=== PATIENT | female | born 1960 | race Caucasian/White ===

== ENCOUNTER → 2020-07-03 12:21 | Outpatient (CLI) | payer OTHER, SELFPAY ==
--- NOTE | ~2020-07-03 | MM_ITS ---
EXAMINATION: MM screening kit BI w ketty HISTORY: Screening mammogram TECHNIQUE: Craniocaudal and mediolateral oblique 3-D tomosynthesis images were obtained and synthetic 2-D images were generated. CAD analysis was submitted and interpreted. COMPARISON: No prior mammogram is available for comparison at this institution. BREAST PARENCHYMAL COMPOSITION: There are scattered areas of fibroglandular density. FINDINGS: Mild fibroglandular asymmetry. Occasional benign calcifications. There is no evidence of wolfe spicious mass, calcification, or architectural distortion to suggest malignancy in either breast. The re has been no suspicious interval change. IMPRESSION: 1. No mammographic evidence of malignancy. 2. Recommend routine screening mammography in one year. BI-RADS Category 2: Benign finding(s). Reviewed, dictated and finalized at location A.
== END ==
PROVIDERS: Visit Provider Nurse Practitioner Obstetrics & Gynecology
DX: Z12.31 Encounter for screening mammogram for malignant neoplasm of breast (principal)
CPT/HCPCS: 77063; 77067

== ENCOUNTER → 2020-08-26 15:39 | Outpatient (CLI) | payer OTHER, SELFPAY ==
--- NOTE | ~2020-08-26 | XR_ITS ---
EXAMINATION: XR shoulder RT min 2V DATE: 08/26/2020 16:19 INDICATION: Right shoulder pain. TECHNIQUE: 4 views of right shoulder were obtained. COMPARISON: None. FINDINGS: Bone alignment is normal. No fracture. There is mild osteoarthritis of glenohumeral joint a nd moderate osteoarthritis of acromioclavicular joint. There are changes of heart valve replacement. IMPRESSION: 1. Polyarticular osteoarthritis. Reviewed, dictated and finalized at location A. O DIRECTOR
== END ==
PROVIDERS: PCP Internal Medicine; Visit Provider Internal Medicine
DX: M19.011 Primary osteoarthritis, right shoulder (principal)
CPT/HCPCS: 73030

== ENCOUNTER → 2020-08-27 11:53 | Outpatient (CLI) | payer OTHER, SELFPAY ==
--- NOTE | ~2020-08-27 | XR_ITS ---
EXAMINATION: XR chest 2V EXAM DATE: 08/27/2020 12:12 INDICATION: R07.89 - Other chest pain . TECHNIQUE: Frontal and lateral projections of the chest obtained and reviewed. There is no prior nuno dy for comparison. FINDINGS: Sternotomy wires are present without findings to suggest sternal dehiscence. Cardiac valve replacement. The lungs are clear. There are no pleural effusions. The cardiomediastinal silhouette is within normal limits. There is no pneumothorax suspected. The bones and soft tissues are unrema rkable. IMPRESSION: Unremarkable chest x-ray exam. Reviewed, dictated and finalized at location B. ONAL CARE AIDE
== END ==
PROVIDERS: PCP Internal Medicine; Visit Provider Internal Medicine
DX: R07.89 Other chest pain (principal)
CPT/HCPCS: 71046

== ENCOUNTER → 2021-10-01 15:36 | Outpatient (CLI) | payer OTHER, SELFPAY ==
--- NOTE | ~2021-10-01 | MM_ITS ---
EXAMINATION: MM screening kit BI w ketty HISTORY: Screening mammogram TECHNIQUE: Craniocaudal and mediolateral oblique 3-D tomosynthesis images were obtained and synthetic 2-D images were generated. CAD analysis was submitted and interpreted. COMPARISON: 05/03/2020 BREAST PARENCHYMAL COMPOSITION: There are scattered areas of fibroglandular density. FINDINGS: RIGHT BREAST: There is a possible mass in the middle third outer breast best appreciated 11.8 cm from the nipple on the craniocaudal. LEFT BREAST: There is no evidence of suspicious mass, calcification, or architectural distortion to s uggest malignancy. There has been no significant interval change. IMPRESSION: 1. Possible right breast mass. 2. Additional mammographic views and possible breast ultrasound are recommended. BI-RADS Category 0: Incomplete: Needs additional imaging evaluation. Reviewed, dictated and finalized at location A. OFF MAN IMPRESSION: 1. Possible right breast mass. 2. Additional mammographic views and possible breast ultrasound are recommended . BI-RADS Category 0: Incomplete: Needs additional imaging evaluation.
== END ==
PROVIDERS: PCP Internal Medicine; Visit Provider Internal Medicine
DX: Z12.31 Encounter for screening mammogram for malignant neoplasm of breast (principal); R92.8 Other abnormal and inconclusive findings on diagnostic imaging of breast
CPT/HCPCS: 77063; 77067

== ENCOUNTER → 2021-10-20 08:25 | Outpatient (CLI) | payer OTHER, SELFPAY ==
--- NOTE | ~2021-10-20 | MMUS_ITS ---
EXAMINATION: MM diagnostic kit RT w ketty, US breast RT limited HISTORY: Follow-up possible right breast mass TECHNIQUE: Additional 3-D tomosynthesis images of the right breast were performed and synthetic 2-D i mages were generated. CAD analysis was submitted and interpreted. High resolution limited right breas t ultrasound was performed. COMPARISON: Comparison to multiple prior studies sequentially, with oldest reviewed study dated 06/07. BREAST PARENCHYMAL COMPOSITION: Breast composed of scattered areas of fibroglandular density. FINDINGS: MAMMOGRAPHIC FINDINGS: There are no suspicious masses, calcifications or architectural distortion in the right breast to sug gest malignancy. ULTRASOUND: Limited right breast ultrasound: There is a hypoechoic structure at 10:00, 9 cm from the nipple with internal vascularity, likely a prominent vessel. IMPRESSION: 1. Probable benign prominent focal vessel in the right breast at 10:00, 9 cm from the nipple. 2. Recommend 6 month follow-up diagnostic right mammogram and ultrasound BI-RADS category 3, probably benign findings. Reviewed, dictated and finalized at location A. 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 Probable benign prominent focal vessel in the right breast at 10:00, 9 cm fr om the nipple. 2. Recommend 6 month follow-up diagnostic right mammogram and ultrasound BI-RADS category 3, probably benign findings.
== END ==
PROVIDERS: PCP Internal Medicine; Visit Provider Internal Medicine
DX: N63.0 Unspecified lump in unspecified breast (principal); R92.8 Other abnormal and inconclusive findings on diagnostic imaging of breast
CPT/HCPCS: 76642; 77061; 77065; G0279

== ENCOUNTER → 2022-12-18 15:01 | Outpatient (CLI) | payer OTHER, SELFPAY ==
--- NOTE | ~2022-12-18 | MMUS_ITS ---
EXAMINATION: MM diagnostic kit BI w ketty, US breast RT limited HISTORY: Probable benign prominent focal vessel in the right breast at 10:00 9 cm from nipple reporte d on October 20, 2021 right ultrasound examination. Otherwise the examination was performed for scre ening purposes TECHNIQUE: ML, MLO and CC 3-D tomosynthesis images of both breasts were performed and synthetic 2-D i mages were generated. Rolled medial and rolled lateral craniocaudal views of right breast. CAD analys is was submitted and interpreted. High resolution upper outer quadrant right breast ultrasound was pe rformed. COMPARISON: October 20, 2021 diagnostic right mammogram and limited right breast ultrasound 10/01/2021 and 07/03/2020 bilateral screening mammogram examinations BREAST PARENCHYMAL COMPOSITION: There are scattered areas of fibroglandular density. FINDINGS: MAMMOGRAPHIC FINDINGS: Stable mild granular asymmetry. Occasional benign calcifications. No suspicious mass or architectural distortion, malignant calcification, skin thickening or retractio n or significant new or developing density is detected. ULTRASOUND: At 10:00 9 cm from the nipple there is an approximately 4 x 1.5 x 2 mm sonolucency, without shadowing , likely a small cyst. IMPRESSION: 1. No mammographic evidence of malignancy 2. Routine annual mammographic screening is recommended. BI-RADS Category 2: Benign finding(s). Reviewed, dictated and finalized at location A. IMPRESSION: 1. No mammographic evidence of malignancy 2. Routine annual mammographic screening is recommended. BI-RADS Category 2: Benign finding(s).
== END ==
PROVIDERS: PCP Internal Medicine; Visit Provider Internal Medicine
DX: N63.0 Unspecified lump in unspecified breast (principal)
CPT/HCPCS: 76642; 77062; 77066; G0279

== ENCOUNTER → 2023-06-15 15:36 | Outpatient (CLI) | payer OTHER, SELFPAY ==
--- NOTE | ~2023-06-15 | XR_ITS ---
Right Knee Technique: AP, lateral, and sunrise views were obtained. Clinical History: Pain Findings: No fracture or dislocation is seen. Osseous alignment is anatomic. There is mild degenerati ve spurring of the lateral joint line and patellofemoral compartment. Soft tissues are unremarkable. No joint effusion is seen. Impression: Mild degenerative change of the lateral and patellofemoral compartments, as detailed above. Reviewed, dictated and finalized at location M. Impression: Mild degenerative change of the lateral and patellofemoral compartments, as det yung above.
--- NOTE | ~2023-06-15 | XR_ITS ---
EXAMINATION: XR sacrum coccyx min 2V INDICATION: Pain after fall TECHNIQUE: Three views of the sacrum and coccyx are obtained. COMPARISON: None available FINDINGS: No fracture is identified. There is severe lower lumbar spondylosis phleboliths are noted i n the pelvis. The sacroiliac joints are unremarkable. IMPRESSION: 1. No acute osseous abnormality. Reviewed, dictated and finalized at location F.
== END ==
PROVIDERS: PCP Nurse Practitioner; Visit Provider Nurse Practitioner
DX: M53.3 Sacrococcygeal disorders, not elsewhere classified (principal); M25.561 Pain in right knee; M25.562 Pain in left knee
CPT/HCPCS: 72220; 73562

== ENCOUNTER → 2023-06-25 08:14 | Outpatient (CLI) | payer OTHER, SELFPAY ==
--- NOTE | ~2023-06-25 | MR_ITS ---
MRI of the right knee Clinical history: Pain Technique: Coronal proton density and proton density-weighted images, sagittal proton-density and T2 fat-sat images, and axial proton-density fat-saturated images were acquired. Findings: Anterior and posterior cruciate ligaments are intact. Medial collateral ligament and the la teral collateral ligament complex are intact. Popliteus tendon is intact. Medial and lateral menisci are intact, without evidence of tear. There is extensive marrow edema in the lateral tibial plateau region. There is also marrow edema at t he fibular head with sparing cystic change in the fibular head. Possible ganglion cyst arising from t he proximal tibiofibular articulation, with intraosseous extension. There is cystic change of the dis rasta femur just superior to the tibial tunnel, which could reflect enthesopathic change versus enchond jaja. 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 Articular cartilage in the medial lateral c ompartments is relatively well-preserved. There are patellofemoral compartment osteophytes. Extensor mechanism is intact. Minimal joint effusion present. No Bynum's cyst. Impression: Extensive marrow edema at the lateral tibial plateau region and fibular head. Findings could reflect bone contusions, or could also possibly related to apparent ganglion cyst at the proximal tibiofibula r joint with possible intraosseous extension at the fibular head. No fracture evident. No ligamentous injury or meniscal tear seen. Moderate degenerative change of the patellofemoral compartment, as detailed above. Reviewed, dictated and finalized at location . Impression: Extensive marrow edema at the lateral tibial plateau region and fibular head. F indings could reflect bone contusions, or could also possibly related to appare nt ganglion cyst at the proximal tibiofibular joint with possible intraosseous extension at the fibular head. No fracture evident. No ligamentous injury or meniscal tear seen. Moderate degenerative change of the patellofemoral compartment, as detailed ab ove.
== END ==
PROVIDERS: PCP Nurse Practitioner; Visit Provider Nurse Practitioner
DX: M25.561 Pain in right knee (principal); M79.89 Other specified soft tissue disorders
CPT/HCPCS: 73721

== ENCOUNTER 2024-01-11 14:01 | Outpatient (CLI) | payer OTHER, SELFPAY ==
--- NOTE | ~2024-01-11 | MM_ITS ---
EXAMINATION: MM screening kit BI w ketty HISTORY: Screening mammogram TECHNIQUE: Craniocaudal and mediolateral oblique 3-D tomosynthesis images were obtained and synthetic 2-D images were generated. CAD analysis was submitted and interpreted. COMPARISON: 12/18/2022 diagnostic bilateral mammogram and limited bilateral breast ultrasound 10/20/2021 diagnostic right mammogram and Limited right breast ultrasound 10/01/2021 bilateral screening mammogram BREAST PARENCHYMAL COMPOSITION: There are scattered areas of fibroglandular density. FINDINGS: There is no evidence of suspicious mass, calcification, or architectural distortion to sugg est malignancy in either breast. There has been no suspicious interval change. IMPRESSION: 1. No mammographic evidence of malignancy. 2. Recommend routine screening mammography in one year. BI-RADS Category 1: Negative Reviewed, dictated and finalized at location B.
== END 2024-01-11 14:02 ==
PROVIDERS: PCP Family Medicine; Visit Provider Family Medicine
DX: Z12.31 Encounter for screening mammogram for malignant neoplasm of breast (principal)
CPT/HCPCS: 77063; 77067

== ENCOUNTER 2024-10-17 11:52 | Outpatient (CLI) | payer OTHER, SELFPAY ==
--- NOTE | ~2024-10-17 | DEXA_ITS ---
Bone Density Report Name: TIMMY SCHULZ Age: 64 Sex: Female Ethnicity: White Date of : 1960 Indication: postmenopausal; screening for osteoporosis; height loss; seizure disorder; Referring Provider: BAN, [facility] Study: Bone densitometry was performed. Exam Date: October 17, 2024 Accession number: [id number] Bone Density: Region BMD T-score Z-score Classification AP Spine(L1-L4) 1.022 -0.2 1.4 Normal Femoral Neck (Left) 0.662 -1.7 -0.3 Osteopenia Total Hip (Left) 0.814 -1.1 0.1 Osteopenia Femoral Neck (Right) 0.744 -0.9 0.5 Normal Total Hip (Right) 0.844 -0.8 0.3 Normal Femoral Neck Mean 0.703 -1.3 0.1 Osteopenia Total Hip Mean 0.829 -0.9 0.2 Normal World Health Organization criteria for BMD impression classify patients as: Normal (T-score at or above -1.0), Osteopenia (T-score between -1.0 and -2.5), or Osteoporosis (T-score at or below -2.5). Clinical Information Provided by Patient: Has used the following medications: Vitamin D, Calcium Has the following medical conditions: Any Seizure Disorders Patient maximum height was 66 Menopause Age: 44 No regular weight bearing exercise Drinks caffeinated beverages Onset of menses at age 12 Number of children 0 Impression: The patient has low bone mass, based on the Left Femoral Neck T-score. Discussion: BONE DENSITY IS LOW AT ONE OR MORE SKELETAL SITES. This patient's lowest T-score is low at one or more skeletal sites. It meets the World Health Organization's (WHO) criteria for ?low bone mass? (T-score between -1.0 and -2.5). The patient's 10-year risk of fracture as calculated by FRAX is less than the threshold where pharmacological therapy is recommended by the National Osteoporosis Foundation (NOF). However, all treatment decisions require clinical judgment and consideration of individual patient factors, including patient preferences, comorbidities, previous drug use, risk factors not captured in the FRAX model (e.g., frailty, falls, vitamin D deficiency, increased bone turnover, interval significant decline in bone density) and possible under or overestimation of fracture risk by FRAX. The patient should follow a healthful lifestyle (good nutrition with adequate calcium and vitamin D, and appropriate weight-bearing exercise). Follow-Up: Consider repeating this study in 2 to 3 years to reassess this patient's status, or sooner if there is some new clinical indication. Reported by: NAHOMY on 10/17/2024 12:18:00 PM. Reviewed, dictated and finalized at location A.
--- OUTSIDE RECORDS SUMMARY | 2024-10-17 13:05 | XMS_ITS | Encounter Summary ---
Author Organization [facility] Address [address] [place] [address] Care Team Providers Care Stock Handler Floorperson Name Role Phone Steven Damon MD Primary Care Provider [phone] Reason for Visit * Reason Onset Date Comments Order 02/14/2024 Encounter Details Date Type Department Care Team (Late st Contact Info) Description 02/14/2024 Telephone [facility] - Centralized Scheduling [address] [place] [address] Mary Mensah, OD [address] [place] [address] Order Social History Tobacco Use Types Packs/Day Years Used Date Smoking Tobacco: Never Sex and Gender Information Value Date Recorded Sex Assigned at Not on file Gender Identity Not on file Sexual Orientation Not on file documented as of this encounter Miscellaneous Notes * Telephone Encounter - Madisyn Rodriguez - 02/14/2024 10:01 AM CDT Current Provider: Rodrick Reason for Call: Patient called stating she lost one of her contacts. Patient would like to place another order and have them sent to her work since she is currently out of town for work Patient Call Back Number: [phone] documented in this encounter Plan of Treatment Not on file documented as of this encounter Visit Diagnoses Not on filedocumented in this encounter Care Teams Stock Handler Floorperson Relationship Specialty Start Date End Date Steven Damon MD [address] [place] [id number] PCP - General 12/26/18 documented as of this encounter
--- OUTSIDE RECORDS SUMMARY | 2024-10-17 13:06 | XMS_ITS | Referral Summary ---
Author Organization [facility] D Address [address] [place] [address] Care Team Providers Care Geometry Teacher Name Role Phone Jignesh Gallo MD Unavailable Julito Mcgee MD Primary Care Provider [phone] Encounters Date Type Department Care Team Description 10/06/2024 Anticoagulation Telephone Call [address] [address] Jignesh Gallo MD jail (current) use of anticoagulants [Z79.01] (Primary Dx); S/P aortic valve replacement with metallic valve 09/26/2024 7:30 AM ROSS LIFT OPERATOR Ancillary Procedure [facility] Cardiology [address] [place] [address] [address] [place] [address] Status post placement of implantable loop recorder (Primary Dx); Syncope and collapse 09/15/2024 Anticoagulation Telephone Call [address] [address] Jignesh Gallo MD 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 (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) use of anticoagulants [Z79.01] (Primary Dx); S/P aortic valve replacement with metallic valve 08/29/2024 Anticoagulation Telephone Call [facility] Cardiology [address] [place] [address] [place] [address] Jignesh Gallo MD 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 (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) use of anticoagulants [Z79.01] (Primary Dx); S/P aortic valve replacement with metallic valve 08/15/2024 4:15 PM ROSS LIFT OPERATOR Office Visit [facility] Care at [address] [address] Marie Dumont NP Acute pain of left shoulder (Primary Dx) 08/15/2024 10:15 AM ROSS LIFT OPERATOR Ancillary Procedure [facility] Cardiology [address] [place] [address] [address] [place] [address] Status post placement of implantable loop recorder (Primary Dx); Syncope and collapse 08/14/2024 Telephone [facility] Rheumatology at [place] [address] [facility] [address] [place] [address] Scarlett Navarro MD Pain on her shoulder 08/09/2024 Anticoagulation Telephone Call [facility] Cardiology 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) use of anticoagulants [Z79.01] (Primary Dx); S/P aortic valve replacement with metallic valve 07/24/2024 Anticoagulation Telephone Call [facility] Cardiology [address] [place] [address] [address] [place] [address] Jignesh Gallo MD jail (current) use of anticoagulants [Z79.01] (Primary Dx); S/P aortic valve replacement with metallic valve from Last 3 Months Allergies Active Allergy Reactions Criticality Noted Date Comments Sumatriptan Other (See comments) Low Unable to breath Medications aspirin 81 mg enteric coated tablet Take 1 tablet (81 mg total) by mouth nightly Active coenzyme Q10 100 mg capsule Take 1 capsule (100 mg total) by mouth nightly Active calcium carbonate-vitam in D3 1,250 mg (500 mg elemental)-400 unit chewable tablet Take 1 tablet by mouth daily Active OXcarbazepine (TRILEPTAL) 600 mg tabletIndicatio ns:Partial symptomatic epilepsy with complex partial seizures, not intractable, without status epilepticus (HCC) Take 1 tablet (600 mg total) by mouth nightly 90 tablet 3 4 025 Active warfarin (COUMADIN) 5 mg tablet TAKE 1 AND 1/2 TABLETS BY MOUTH DAILY 135 tablet 1 4 Active cyclobenzaprine (FLEXERIL) 10 mg tabletIndicatio ns:Acute pain of left shoulder Take 1 tablet (10 mg total) by mouth 3 (three) times a day as needed for muscle spasms 30 tablet 4 Active simvastatin (ZOCOR) 20 mg tablet TAKE 1 TABLET BY MOUTH EVERY NIGHT 90 tablet 3 5 Active simvastatin (ZOCOR) 20 mg tablet TAKE 1 TABLET BY MOUTH EVERY NIGHT 90 tablet 3 4 025 Discontinued Active Problems Problem Noted Date Diagnosed Date Left carpal tunnel syndrome 12/22/2022 Right carpal tunnel syndrome 11/09/2022 Right hand pain 11/09/2022 PSVT (paroxysmal supraventricular tachycardia) 0 04/28/2022 Assessment & Plan (06/02/2024 3:29 PM CDT): Fortunately, no recurrences. Assessment & Plan (04/30/2023 9:33 AM CDT): No recurrences. Assessment & Plan (04/28/2022 9:40 AM CDT): Her loop monitor did show an 11 sec run of asymptomatic wide complex tachycardia, interpreted as SVT with aberrancy. Although potentially could have been nonsustained ventricular tachycardia, she has had preserved left ventricular function and is entirely asymptomatic. Will ask EP about her rhythm disturbance. Increased BMI 04/28/2022 Assessment & Plan (06/02/2024 3:31 PM CDT): Discussed meaningful weight loss thru lifestyle modifications, including dietary changes and weight loss. Advised to decrease caloric intake, eat a low-fat/cholesterol and low-salt diet. Assessment & Plan (04/30/2023 9:33 AM CDT): Has lost weight. Discussed meaningful weight loss thru diet/exercise. Assessment & Plan (04/28/2022 9:43 AM CDT): She is aware the need for additional weight loss through diet and exercise, which will also help her osteopenia. Ascending aorta dilation ([facility]) 04/28/2022 Assessment & Plan (06/02/2024 3:29 PM CDT): We have not examined her aortic root in some time. In addition, her aortic arch was described as being 3 cm. We will repeat her TTE at this time. Assessment & Plan (04/30/2023 9:33 AM CDT): Continuing BP control and monitoring. Assessment & Plan (04/28/2022 9:43 AM CDT): Will continue to monitor. She is had excellent blood pressure control. COVID-19 virus infection 04/28/2022 Overview (04/28/2022): Recovered. Polymyalgia rheumatica ([facility]) 04/27/2022 Assessment & Plan (06/02/2024 3:29 PM CDT): Per PCP and Rheumatology. Assessment & Plan (04/30/2023 9:33 AM CDT): Per PCP and Rheumatology. Assessment & Plan (04/28/2022 9:41 AM CDT): Per PCP and rheumatology. She is now on very low-dose prednisone which she anticipates being discontinued at some point in the near future. Transient alteration of awareness 10/28/2021 Micturition syncope 07/13/2021 Assessment & Plan (04/30/2023 9:32 AM CDT): No further episodes. She has had some lightheadedness but no abnormalities on ILR, so suspect episode may have been low BP. Assessment & Plan (04/28/2022 9:39 AM CDT): Fortunately, she is not had any recurrences of her syncope, dizziness, or lightheadedness. Assessment & Plan (08/26/2021 9:43 AM ROSS LIFT OPERATOR): Patient has experienced a 1 day episode of multiple recurrent syncopal events of uncertain etiology. Cardiology evaluation to date is unrevealing and she now has an implanted classroom monitor. I will obtain a CT brain with and without contrast as well as sleep-deprived EEG with hyperventilation photic stimulation to screen for current seizure tendencies despite her continued use of oxcarbazepine as a potential noncardiac etiology for her recurrent syncope. I have advised her not to drive until having testing completed. She will follow-up in neurology clinic upon completion of her CT brain and sleep-deprived EEG. She cannot have an MRI at this time with the implanted cardiac device. Aortic valve disorder 06/10/2020 Seizure 06/10/2020 Medication monitoring encounter 06/10/2020 Assessment & Plan (06/10/2020 8:40 AM CDT): Patient has had recent CBC provided through PCP which is unrevealing. I will obtain electrolyte panel to screen for hyponatremia which can be associated with continued oxcarbazepine usage. Partial symptomatic epilepsy with complex partial seizures, not intractable, without status epilepticus 06/10/2020 Assessment & Plan (08/26/2021 9:42 AM ROSS LIFT OPERATOR): Patient continues on oxcarbazepine 600 mg b.i.d. at this time with good sided compliance and tolerance. Assessment & Plan (06/09/2021 8:59 AM CDT): Patient continues on oxcarbazepine 600 mg HS with good tolerability and no seizures reported over the interim. Laboratories have been reviewed today. I have renewed her oxcarbazepine 600 mg HS as currently prescribed. She will follow-up in neurology clinic in a year. Assessment & Plan (06/10/2020 8:40 AM CDT): Patient's prior patient of [facility] now transferring care to [facility]. Prior medical records from [facility] have been requested for future appointments in effort to facilitate transfer in care. She has been prescribed oxcarbazepine 600 mg HS with good tolerability and no seizures reported over the past year. She is in need of refill of medication. I have renewed her oxcarbazepine 600 mg HS and will plan on seeing her back in 1 year. Post-operative state 08/23/2019 Choledocholithiasis with acute cholecystitis Gallbladder disease 07/28/2019 Overview (07/30/2019): Added automatically from request for surgery [id number] Calculus of bile duct withou t cholecystitis with obstruction 07/28/2019 Overview (07/31/2019): Added automatically from request for surgery [id number] Myopia of both eyes 01/16/2019 jail (current) use of anticoagulants [Z79.0 1] 04/07/2017 Assessment & Plan (06/02/2024 3:31 PM CDT): No major bleeding problems on anticoagulation. S/P aortic valve replacement with metallic valve 04/07/2017 Assessment & Plan (06/02/2024 3:30 PM CDT): Doing well. We will review again by TTE. She has been anticoagulated without bleeding complications. She was aware of and uses endocarditis prophylaxis when indicated. Assessment & Plan (04/30/2023 9:30 AM CDT): Doing well. Uses SBE prophylaxis when needed. Assessment & Plan (04/28/2022 9:41 AM CDT): She is doing well without any symptoms from her aortic stenosis/AVR. She is aware of an uses endocarditis prophylaxis. Her INR has been therapeutic. Dyslipidemia 05/19/2015 H/O aortic valve replacement 05/19/2015 Seizure disorder ([facility]) 05/19/2015 Assessment & Plan (04/28/2022 9:41 AM CDT): Per neurology. She saw them yesterday. Dr. Ziegler has now taken over for Dr. Jamison. Edema 12/20/2012 Overview (12/12/2016): Edema Hyperlipidemia 12/16/2012 Overview (12/11/2016): HYPERLIPIDEMIA NEC/NOS Seizure disorder ([facility]) 12/16/2012 Overview (12/10/2016): Seizure disorder Assessment & Plan (06/02/2024 3:30 PM CDT): Per PCP and Neurology. Fortunately no recurrences on Lamictal. Assessment & Plan (04/30/2023 9:30 AM CDT): Per PCP and Neurology. No further seizure activity. History of prosthetic heart valve 12/16/2012 Overview (12/10/2016): S/P AVR (aortic valve replacement) Loss of consciousness ([facility]) 07/12/2012 Overview (12/10/2016): Loss of consciousness Immunizations Name Administration Dates Next Due Influenza, Quad, Adjuvantate d, Intramuscular 06/25/2022 Influenza, Quadrivalent, Spl it, Preservative Free, Intramuscular 06/30/2021,05/21/2020,07/05/2019 Influenza, Trivalent, IM (MDV) 06/20/2017,2012 Influenza, Trivalent, Preser vative Free, Intramuscular 06/08/2013 Influenza, Unspecified 06/29/2021 Pfizer SARS-CoV-2 Monovalent Vaccination (12+ Yrs) PURPLE 08/09/2021 Pfizer Sars-Cov-2 Bivalent V accination (12+ YRS) 06/25/2022 ZOSTER Recombinant 06/30/2021 Social History Tobacco Use Types Packs/Day Years Used Date Smoking Tobacco: Never Smokeless Tobacco: Never Tobacco Cessation:Counseling Given: Not Answered Alcohol Use Standard Drinks/Week Comments No 0 (1 standard drink = 0.6 oz pur e alcohol) AUDIT-C Answer Date Recorded Q1: How often do you have a drink containing alc ohol? Never 08/15/2021 Average Number of Drinks Not on file 021 Frequency of Binge Drinking Not on file 08/06 Personal Safety Answer Date Recorded Getting School Help Needed Denies 08/18 Comments No Sex and Gender Information Value Date Recorded Sex Assigned at Not on file Legal Sex Female 11:46 AM ROSS LIFT OPERATOR Gender Identity Female 06/05/2021 4:05 PM CDT Sexual Orientation Straight 06/05/2021 4: 05 PM CDT Last Filed Vital Signs Vital Sign Reading Time Taken Comments Blood Pressure 126/82 08/15/2024 3:27 PM ROSS LIFT OPERATOR Pulse 71 08/15/2024 3:27 PM ROSS LIFT OPERATOR Temperature 37 C (98.6 F) 08/15/2024 3:27 PM ROSS LIFT OPERATOR Respiratory Rate 20 08/15/2024 3:27 PM ROSS LIFT OPERATOR Oxygen Saturation 99% 08/15/2024 3:27 PM ROSS LIFT OPERATOR Inhaled Oxygen Concentration - - Weight 95.3 kg (210 lb) 08/15/2024 3:27 PM ROSS LIFT OPERATOR Height 167.6 cm (5' 6 ) 06/02/2024 10:42 AM CDT Body Mass Index 33.89 06/02/2024 10:42 AM CDT Plan of Treatment Not on file Medical Devices Implanted Type Area Environmental Geologist Device Identifier Shelf Expiration Date Model / Serial / Lot Medtronic Cardiac Rhythm Mgmt Linqsys Reveal Linq Mycarelink Insertable Loop Recorder Automatic - [id number] - [id number] Implanted:Qty: 1 on 08/15/2021 by Jignesh Gallo MD at [facility] Implantable Loop Recorder [employer] 04/19/2022 LINQSYS / [id number] / Procedures Procedure Name Priority Date/Time Associated Diagnosis Comments PROTIME-INR Routine 10/06/2024 DEVICE CHECK - REMOTE Routine 09/26/2024 9:32 AM ROSS LIFT OPERATOR Syncope and collapse PROTIME-INR Routine 09/15/2024 PROTIME-INR Routine 08/29/2024 DEVICE CHECK - REMOTE Routine 08/15/2024 8:42 AM ROSS LIFT OPERATOR Syncope and collapse PROTIME-INR Routine 08/09/2024 PROTIME-INR Routine 07/24/2024 HEPATITIS C ANTIBODY Routine 10/18/2020 2:10 PM ROSS LIFT OPERATOR Arthralgia, unspecified joint Elevated sed rate Acute pain of both shoulders Myalgia from Last 3 Months or Most Recently Relevant to Health Maintenance Results * (ABNORMAL) Protime-INR (10/06/2024) INR 2.80(A) 2.50 - 3.50 EXTERNAL LAB Blood Result [facility] Historical Provider LAB BLOOD ORDERABLES Yomaira l Result Performing Organization Address [facility]/State/ZIP Co de Phone Number EXTERNAL LAB * DEVICE CHECK - REMOTE (09/26/2024 9:32 AM ROSS LIFT OPERATOR) Anatomical Region Laterality Modality Other Narrative 10/02/2024 7:31 AM ROSS LIFT OPERATOR Medtronic REVEAL LinQ implanted August 15, 2021 for syncope. Patient had a routine [facility] remote transmission of their implantable loop recorder on September 26, 2024. Medications: ASA 81 mg daily, Coumadin Interrogation of the patients device demonstrates that the Linq is functioning appropriately (0) Symptom events Auto Device detected events of, (0) Pause, (0) Bradycardia, (0) Tachy, (0) AT, (0) AF, Presenting Rhythm: NSR at 74 bpm Battery: OK Plan: 1) Routine Remote with no new events. 2) Continue to monitor remotely. Waldemar Cruz Device Acting Professor Result [facility] Jignesh Gallo MD CV CARDIAC SERVICES PROC EDURES Final Result * (ABNORMAL) Protime-INR (09/15/2024) INR 3.10(A) 2.50 - 3.50 EXTERNAL LAB Blood Result [facility] Historical Provider LAB BLOOD ORDERABLES Yomaira l Result EXTERNAL LAB * (ABNORMAL) Protime-INR (08/29/2024) INR 2.40(A) 2.50 - 3.50 EXTERNAL LAB Blood Result [facility] Provider LAB BLOOD ORDERABLES Yomaira l Result Performing Organization Address City/[facility]/ZIP Co de Phone Number EXTERNAL LAB * DEVICE CHECK - REMOTE (08/15/2024 8:42 AM ROSS LIFT OPERATOR) Anatomical Region Laterality Modality Other Narrative 08/19/2024 1:34 PM ROSS LIFT OPERATOR Parse REVEAL LinQ implanted August 15, 2021 for syncope. Patient had a routine [facility] remote transmission of their implantable loop recorder on August 15, 2024. Medications: ASA 81 mg daily, Coumadin Interrogation of the patients device demonstrates that the Linq is functioning appropriately (0) Symptom events Auto Device detected events of, (0) Pause, (0) Bradycardia, (0) Tachy, (0) AT, (0) AF, Presenting Rhythm: NSR at 75 bpm Battery: OK Plan: 1) Routine Remote with no new events. 2) Continue to monitor remotely. Waldemar Cruz Device Acting Professor Result [facility] Jignesh Gallo MD CV CARDIAC SERVICES PROC EDURES Final Result * (ABNORMAL) Protime-INR (08/09/2024) INR 4.40(A) 2.50 - 3.50 EXTERNAL LAB Blood Result [facility] Historical Provider LAB BLOOD ORDERABLES Yomaira l Result EXTERNAL LAB * (ABNORMAL) Protime-INR (07/24/2024) INR 2.80(A) 2.50 - 3.50 EXTERNAL LAB Blood Result [facility] Historical Provider MD LAB BLOOD ORDERABLES Yomaira l Result EXTERNAL LAB * Hepatitis C antibody (10/18/2020 2:10 PM ROSS LIFT OPERATOR) Hep C Ab NON-REACTI VE NON-REACT DAMEON [facility] SIGNAL TO CUT-OFF 0.06 <1.00 [facility] Comment: HCV antibody was non-reactive. There is no laboratory evidence of HCV infection. In most cases, no further action is required. However, if recent HCV exposure is suspected, a test for HCV RNA (test code 72736) is suggested. For additional information please refer to http://education.Epoch/faq/KPW39u0 (This link is being provided for informational/ educational purposes only.) Blood specimen (specimen) 10/18/2020 2:10 PM ROSS LIFT OPERATOR 10/18/2020 2:16 PM ROSS LIFT OPERATOR Narrative [facility] - 10/21/2020 1:43 PM ROSS LIFT OPERATOR FASTING:NO FASTING: NO Scarlett Navarro MD LAB MICROBIOLOGY - GENERAL ORDERABLES Final Result [facility] [address] [place] [address] from Last 3 Months or Most Recently Relevant to Health Maintenance Insurance [employer] [place] HMO/POS AET[employer] [place]OV[place] HMO/POS AET[employer] COVENTRY HMO/POS Advance Directives For more information, please contact: [phone] * Full Code (Latest Code Status on File) Date Activated Date Inactivated Comments 07/13/2021 5:48 AM 07/14/2021 7:38 PM Care Teams Geometry Teacher Relationship Specialty Start Date End Date Julito Mcgee MD [address] [place] [address] PCP - General Family Medicine 05/01/24 Jignesh Gallo MD [address] [facility] [address] [place] [address] Operations Officer Cardiology 11/25/20
--- OUTSIDE RECORDS SUMMARY | 2024-10-17 13:06 | XMS_ITS | Encounter Summary ---
Author Organization [facility] Address [address] [place] [address] Care Team Providers Care Finger Cobbler Name Role Phone Luh Silva MD Primary Care Provider [phone] Encounter Details Date Type Department Care Team (Latest Contact Info) Description 04/02/2008 Outpatient Historical HIS [facility] Nicole Sanford, CUSTOMS AGENT NO ADDRESS ON FILE Chris Villeda MD [address] [facility] [address] [place] [address] Other Screening Mammogram Social History Tobacco Use Types Packs/Day Years Used Date Smoking Tobacco: Never Assessed Comments Unknown Sex and Gender Information Value Date Recorded Sex Assigned at Not on file Legal Sex Female 3:02 AM SANDBLASTER STONE Gender Identity Not on file Sexual Orientation Not on file documented as of this encounter Plan of Treatment Not on file documented as of this encounter Procedures Procedure Name Priority Date/Time Associated Diagnosis Comments MAMMO SCREEN BILAT W OR WO CAD Routine 04/02/2008 11:24 AM CDT documented in this encounter Results * MAMMO DIGITAL SCREEN BILAT (04/02/2008 11:24 AM CDT) Anatomical Region Laterality Modality Breast Bilateral Other 04/02/2008 11:2 4 AM CDT Narrative 04/03/2008 7:40 AM CDT [facility] [address] [place], [place] [address] Admit Date: 04/02/2008 TIMMY SCHULZ Sex: F Admit Prov: CHRIS VILLEDA Date: 1960 Primary Care Prov: LUH SILVA CMRN: [id number] Room: DAMION N: [id number] IMAGING SERVICES Ordering Prov: CHRIS VILLEDA Accession Number: [id number] Interpretation BILATERAL FULL FIELD DIGITAL SCREENING MAMMOGRAM WITH CAD. Date: 04/02/2008 History: Routine Screening. Technique: Full field digital craniocaudal and mediolateral oblique projections of both breasts were obtained. Computer aided diagnosis was performed. Comparison: 12/2003 Breast Parenchymal Composition: Scattered fibroglandular densities. Findings: No suspicious mass, suspicious microcalcifications, or architectural distortion in either breast is identified. Since the prior study, there has been no significant interval change. The computer aided diagnosis detects no significant abnormality. Overall Assessment: BI-RADS category 1: Negative. Recommendation: Annual mammography is recommended. Assessment BIRADS: 1-Negative Recommendation: Normal interval follow-up Dictated by: MELISSA CHEATHAM Electronically signed by: MELISSA CHEATHAM 04/03/2008 07:38 Transcribed: 04/02/2008 23:16 AMK Procedure Note Melissa Cheatham - 04/03/[address] [address] Admit Date: 04/02/2008 TIMMY SCHULZ Sex: F Admit Prov: CHRIS VILLEDA Date: 1960 Primary Care Prov: LUH SILVA CMRN: [id number] Room: DAMION N: [id number] IMAGING SERVICES Ordering Prov: CHRIS VILLEDA Interpretation BILATERAL FULL FIELD DIGITAL SCREENING MAMMOGRAM WITH CAD. Date: 04/02/2008 History: Routine Screening. Technique: Full field digital craniocaudal and mediolateral oblique projections of both breasts were obtained. Computer aided diagnosiswas performed. Comparison: 12/2003 Breast Parenchymal Composition: Scattered fibroglandular densities. Findings: No suspicious mass, suspicious microcalcifications, or architectural distortion in either breast is identified. Since theprior study, there has been no significant interval change. The computeraided diagnosis detects no significant abnormality. Overall Assessment: BI-RADS category 1: Negative. Recommendation: Annual mammography is recommended. Assessment BIRADS: 1-Negative Recommendation: Normal interval follow-up Dictated by: MELISSA CHEATHAM Electronically signed by: MELISSA CHEATHAM 04/03/2008 07:38 Transcribed: 04/02/2008 23:16 AMK Chris Villeda MD MAMMO ORDERABLES Final Result documented in this encounter Visit Diagnoses Diagnosis Other screening mammogram documented in this encounter Care Teams Finger Cobbler Relationship Specialty Start Date End Date Luh Silva MD PCP - General 08/23/15 06/24/17 documented as of this encounter
--- OUTSIDE RECORDS SUMMARY | 2024-10-17 13:06 | XMS_ITS | Encounter Summary ---
Author Organization [facility] Address [address] [place] [address] Care Team Providers Care Insurance Adviser Name Role Phone Julito Silva MD Primary Care Provider [phone] Encounter Details Date Type Department Care Team (Latest Contact Info) Description 12/17/2003 Outpatient Historical HIS [facility] Sabas Rose MD [address] [facility] [address] [place] [id number] LUMP OR MASS IN BREAST (Primary Dx) Social History Tobacco Use Types Packs/Day Years Used Date Smoking Tobacco: Never Assessed Comments Unknown Sex and Gender Information Value Date Recorded Sex Assigned at Not on file Legal Sex Female 3:02 AM LICENSED MIDWIFE Gender Identity Not on file Sexual Orientation Not on file documented as of this encounter Plan of Treatment Not on file documented as of this encounter Visit Diagnoses Diagnosis Lump or mass in breast- Primary documented in this encounter Care Teams Insurance Adviser Relationship Specialty Start Date End Date Julito Silav MD PCP - General 08/23/15 06/24/17 documented as of this encounter
--- OUTSIDE RECORDS SUMMARY | 2024-10-17 13:06 | XMS_ITS | CONTINUITY OF CARE DOCUMENT ---
Author Name toma chua Address Unknown Organization [facility] Address [address] [place] [address] Phone [phone] Care Team Providers Care [employer] Name Role Phone toma chua Unavailable Unavailable
--- OUTSIDE RECORDS SUMMARY | 2024-10-17 13:06 | XMS_ITS | Clinical Summary ---
Author Organization [facility] Address [address] [place] [address] Care Team Providers Care Technical Rep Name Role Phone Steven Damon MD Primary Care Provider [phone] Source Comments [facility] Affiliates and Associated Physician Practices is amultiple site organization consisting of ambulatory clinics and hospital sitesin [place], [place], [place] and [place]. This disclosure is being madepursuant to the Care Everywhere program and may not contain all information available regarding this patient. Last updated 18.[facility] Allergies Active Allergy Reactions Criticality Noted Date Comments Sumatriptan 07/22/2016 Medications * Be aware that medications may not be up to date on this document. Alwaysverify current medications with the patient. Medication Sig Dispensed Refills Start Date End Date Status SIMVASTATIN PO Active OXCARBAZEPINE PO Active Warfarin Sodium (COUMADIN PO) Active aspirin (ASPIRIN) 81 MG tablet Take 81 mg by mouth once daily Active methylPREDNISolone (MEDROL DOSEPAK) 4 MG tabletIndications:Acut e bronchitis, unspecified organism Take 1 pack PO as directed 1 Each 07/22/2016 Active Active Problems Problem Noted Date Diagnosed Date Myopia of both eyes 01/16/2019 Social History Tobacco Use Types Packs/Day Years Used Date Smoking Tobacco: Never Sex and Gender Information Value Date Recorded Sex Assigned at Not on file Gender Identity Not on file Sexual Orientation Not on file Last Filed Vital Signs Vital Sign Reading Time Taken Comments Blood Pressure 124/74 06/09/2017 12:21 PM CDT Pulse 72 06/09/2017 12:21 PM CDT Temperature 37.5 C (99.5 F) 06/09/2017 12:21 PM CDT Respiratory Rate 16 06/09/2017 12:21 PM CDT Oxygen Saturation 98% 06/09/2017 12:21 PM CDT Inhaled Oxygen Concentration - - Weight 83 kg (183 lb) 06/09/2017 12:21 PM CDT Height 167.6 cm (5' 6 ) 06/09/2017 12:21 PM CDT Body Mass Index 29.54 06/09/2017 12:21 PM CDT Plan of Treatment Health Maintenance Due Date Last Done Comments COLOGUARD (AGES 45-75) - COLON CA SCREENING 1961 COLON MONITORING 1961 COLONOSCOPY - COLON CA SCREENING 1961 CT COLONOGRAPHY - COLON CA SCREENING 1961 Colorectal Cancer Screening 1961 FIT - COLON CA SCREENING 1961 FLEX SIG - COLON CA SCREENING 1961 PAP SMEAR 1961 HIV SCREENING 1976 HEPATITIS C SCREENING 05/10/1979 DTAP/TDAP/TD VACCINES (1 - Tdap) 1980 PNEUMOCOCCAL VACCINE 50+ (1 of 1 - PCV) 2011 ZOSTER VACCINE (1 of 2) 2011 SCREENING FOR DIABETES 06/09/2017 MAMMOGRAM 08/16/2020 08/16/2018, 11/0 05/2017, 06/29/2016, Additional history exists COVID-19 VACCINE (3 - 2023- season) 2024 06/25/2022, 08/09/2021 INFLUENZA VACCINE (#1) 2024 , 06/29/2021, 05/21/2020, Additional history exists DEPRESSION SCREENING 09/06/2024 Respiratory Syncytial Virus (RSV) Vaccine Pt: or over 60 yrs (1 - 1-dose 75+ series) 2036 HEPATITIS B VACCINE Aged Out No longe r eligible based on patient's age to complete this topic HIB VACCINE Aged Out No longer eligi ble based on patient's age to complete this topic HPV VACCINE Aged Out No longer eligi ble based on patient's age to complete this topic MENINGOCOCCAL (Group B) VACCINE Aged Out No longer eligible based on patient's age to complete this topic MENINGOCOCCAL VACCINE Aged Out No humble louie eligible based on patient's age to complete this topic PNEUMOCOCCAL VACCINE Aged Out No long er eligible based on patient's age to complete this topic Care Teams Technical Rep Relationship Specialty Start Date End Date Steven Damon MD [address] [place] [id number] PCP - General 12/26/18
--- OUTSIDE RECORDS SUMMARY | 2024-10-17 13:06 | XMS_ITS | Clinical Summary ---
Author Organization [facility] Address [address] [place] [address] Phone Care Team Providers Care Chief Projectionist Name Role Phone Unavailable Primary Care Provider Unavailabl e Allergies Active Allergy Reactions Criticality Noted Date Comments Sumatriptan Succinate Shortness of Breath/Wheezing High 05/19/2015 Medications OXCARBAZEPINE (TRILEPTAL ORAL) Take by mouth. Active warfarin (COUMADIN) 10 mg tablet Take 10 mg by mouth daily. Active aspirin (ECOTRIN EC) 81 mg Tablet, Delayed Release (E.C.) Take 81 mg by mouth daily. Active Active Problems Problem Noted Date Diagnosed Date Bartholin cyst abscess, npo at midnight, mvp on warfarin, inr 4.1(vit k given), rpt labs in am, medicine consulted. d/c home today. 05/19/2015 H/O aortic valve replacement 05/19/2015 Dyslipidemia 05/19/2015 Seizure disorder 05/19/2015 Bartholin cyst Family History Medical History Relation Name Comments Breast Cancer Neg Hx Social History Tobacco Use Types Packs/Day Years Used Date Smoking Tobacco: Never Alcohol Use Standard Drinks/Week Comments No 0 (1 standard drink = 0.6 oz pur e alcohol) Comments No Sex and Gender Information Value Date Recorded Sex Assigned at Not on file Legal Sex Female 3:02 AM LAND INSPECTOR Gender Identity Not on file Sexual Orientation Not on file Occupation Industry Job Start Date Job End Date Not on file Not on file Not on file Not on file Last Filed Vital Signs Vital Sign Reading Time Taken Comments Blood Pressure 135/74 05/20/2015 7:08 AM CDT Pulse 68 05/20/2015 7:08 AM CDT Temperature 36.7 C (98.1 F) 05/20/2015 7:08 AM CDT Respiratory Rate 18 05/20/2015 7:08 AM CDT Oxygen Saturation 100% 05/20/2015 7:08 AM CDT Inhaled Oxygen Concentration - - Weight 91.6 kg (202 lb) 05/19/2015 12:42 PM CDT Height 167.6 cm (5' 6 ) 05/19/2015 12:42 PM CDT Body Mass Index 32.6 05/19/2015 12:42 PM CDT Plan of Treatment Health Maintenance Due Date Last Done Comments DTAP/TDAP/TD VACCINES (1 - Tdap) 1980 CERVICAL CANCER SCREENING 1991 COLORECTAL SCREENING 2006 Colorectal Cancer Screening 2006 FIT-DNA Q 3 years 2006 FIT/FOBT Q 1 year 2006 Flex Sig/CT Colonography Q 5 years 2006 ZOSTER VACCINE (1 of 2) 2011 BREAST CANCER SCREENING 08/16/2019 08/16/20 18, 07/15/2017, 06/29/2016, Additional history exists INFLUENZA VACCINE (#1) 2024 RSV VACCINE (60+ or ) (1 - 1-dose 75+ series) 2036 Procedures Procedure Name Priority Date/Time Associated Diagnosis Comments MAMMO SCREEN BILAT W OR WO CAD Routine 08/16/2018 9:33 AM LAND INSPECTOR Screening for breast cancer from Last 3 Months or Most Recently Relevant to Health Maintenance Results * MAMMO SCREEN BILAT W OR WO CAD (08/16/2018 9:33 AM LAND INSPECTOR) Anatomical Region Laterality Modality Breast Bilateral Mammography Narrative 08/17/2018 8:11 AM LAND INSPECTOR Bilateral digital screening mammogram with computer assisted diagnosis History: Annual screening exam. Findings: A bilateral screening mammogram was performed. Comparison is made to : 07/15/2017, 06/29/2016, and 06/25/2015 There are scattered fibroglandular densities. No new masses, suspicious calcifications, or areas of asymmetry or distortion are identified. CAD was utilized. Impression: Negative screening mammogram. Recommendation: Routine annual follow-up Overall Assessment: Birads Category 1: Negative Tess Keenan CELL TECHNICIAN MAMMO ORDERABLES Final Result from Last 3 Months or Most Recently Relevant to Health Maintenance Insurance * Guarantor: Francisca Marsh Account Type Relation to Patient Date of Phone Billing Address Personal/Family Self 1960 [phone] [id number] (Work) [address] [place] [address] [employer] CHOICE POS II
--- OUTSIDE RECORDS SUMMARY | 2024-10-17 13:06 | XMS_ITS | Patient Health Summary ---
Author Organization [facility] Address [address] [address] Care Team Providers Care Crop Pest Control Specialist Name Role Phone Steven Damon MD Primary Care Provider [phone] Note from [facility],non-owned Affiliates and Associated Physician Practices is amultiple site organization consisting of ambulatory clinics and hospital sitesin [place], [place], [place] and [place]. This disclosure is being madepursuant to the Care Everywhere program and may not contain all information available regarding this patient. Last updated 18.[facility] Allergies * Sumatriptan Medications * Be aware that medications may not be up to date on this document. Alwaysverify current medications with the patient. * SIMVASTATIN PO * OXCARBAZEPINE PO * Warfarin Sodium (COUMADIN PO) * aspirin (ASPIRIN) 81 MG tablet Take 81 mg by mouth once daily * methylPREDNISolone (MEDROL DOSEPAK) 4 MG tablet(Started 07/22/2016) Take 1 pack PO as directed Active Problems Problem Noted Date Diagnosed Date [...] Mass Index 29.54 06/09/2017 12:21 PM CDT Procedures * EYE EXAM(Performed 09/02/2020) * STREP A SCREEN - POINT OF CARE (AMB) STL(Performed 06/09/2017) Performed for Strep throat Results * EYE EXAM (09/02/2020 2:53 PM REGULATORY AFFAIRS STRATEGY SPECIALIST) Anatomical Region Laterality Modality Other Narrative 09/02/2020 2:53 PM REGULATORY AFFAIRS STRATEGY SPECIALIST Ordered by an unspecified provider. Scanned Document SCANNING ONLY * (ABNORMAL) STREP A SCREEN (06/09/2017 12:39 PM CDT) Strep A Rapid POCT Positive(A) Negative Strep A Internal Control Present Lot # [id number] Expiration Date 12/02/18 Throat ENTIRE THROAT (SURFACE REGION OF NECK) / Unknown 06/09/2017 12:39 PM CDT Geneva Garcia [facility] - POINT OF CA RE ORDERABLES Care Teams Crop Pest Control Specialist Relationship Specialty Start Date End Date Steven Damon MD [address] [place] [phone] PCP - General 12/26/18
--- OUTSIDE RECORDS SUMMARY | 2024-10-17 13:06 | XMS_ITS | Referral Summary ---
Author Organization [facility] Address [address] [place] [address] Care Team Providers Care Network Support Technician Name Role Phone Steven Damon MD Primary Care Provider [phone] Source Comments [facility],non-[facility] Affiliates and Associated Physician Practices is amultiple site organization consisting of ambulatory clinics and hospital sitesin [place], [place], [place] and [place]. This disclosure is being madepursuant to the Care Everywhere program and may not contain all information available regarding this patient. Last updated 18.[facility] Allergies Active Allergy Reactions Criticality Noted Date [...] 06/09/2017 12:21 PM CDT Plan of Treatment Not on file Care Teams Network Support Technician Relationship Specialty Start Date End Date Steven Damon MD [address] [place] [phone] PCP - General 12/26/18
--- OUTSIDE RECORDS SUMMARY | 2024-10-17 13:06 | XMS_ITS | Clinical Summary ---
Author Organization [facility] Address [address] [place] [address] Care Team Providers Care Information Assurance Specialist Name Role Phone Jignesh Gallo MD Unavailable [phone] Julito Mcgee MD Primary Care Provider [phone] Allergies Active Allergy Reactions Criticality Noted Date [...] also help her osteopenia. Ascending aorta dilation (CMS/HCC) 04/28/2022 Assessment & Plan (06/02/2024 3:29 PM [...] infection 04/28/2022 Overview (04/28/2022): Recovered. Polymyalgia rheumatica ([facility]) 04/27/2022 Assessment & Plan (06/02/2024 3:29 PM [...] lightheadedness. Assessment & Plan (08/26/2021 9:43 AM TAX AGENT): Patient has experienced a 1 day episode of multiple recurrent syncopal events of uncertain etiology. Cardiology evaluation to date is unrevealing and she now has an implanted nuclear monitoring technician. I will obtain a CT brain with [...] 06/10/2020 Assessment & Plan (08/26/2021 9:42 AM TAX AGENT): Patient continues on oxcarbazepine 600 mg b.i.d. [...] 8:40 AM CDT): Patient's prior patient of [facility] now transferring care to [facility]. Prior medical records from [facility] have been requested for future appointments [...] (07/30/2019): Added automatically from request for surgery [id number] Calculus of bile duct withou t cholecystitis with obstruction 07/28/2019 Overview (07/31/2019): Added automatically from request for surgery [id number] Myopia of both eyes 01/16/2019 jail (current) [...] H/O aortic valve replacement 05/19/2015 Seizure disorder ([facility]/HCC) 05/19/2015 Assessment & Plan (04/28/2022 9:41 AM CDT): Per neurology. She saw them yesterday. Dr. Ziegler has now taken over for Dr. Jamison. Edema 12/20/2012 Overview (12/12/2016): Edema Hyperlipidemia 12/16/2012 Overview (12/11/2016): HYPERLIPIDEMIA NEC/NOS Seizure disorder (CMS/HCC) 12/16/2012 Overview (12/10/2016): Seizure disorder Assessment & Plan (06/02/2024 3:30 PM CDT): Per PCP and Neurology. Fortunately no recurrences on Lamictal. Assessment & Plan (04/30/2023 9:30 AM CDT): Per PCP and Neurology. No further seizure activity. History of prosthetic heart valve 12/16/2012 Overview (12/10/2016): S/P AVR (aortic valve replacement) Loss of consciousness ([facility]) 07/12/2012 Overview (12/10/2016): Loss of consciousness Encounters Date Type Department Care Team Description 10/06/2024 Anticoagulation Telephone Call [facility] Cardiology [address] [place] [phone] Jignesh Gallo MD jail (current) use of anticoagulants [Z79.01] (Primary Dx); S/P aortic valve replacement with metallic valve 09/26/2024 7:30 AM TAX AGENT Ancillary Procedure [address] [address] Status post placement of implantable loop recorder (Primary Dx); Syncope and collapse 09/15/2024 Anticoagulation Telephone Call [address] [address] Jignesh Gallo MD director long term care (current) use of anticoagulants [Z79.01] (Primary Dx); S/P aortic valve replacement with metallic valve 08/29/2024 Anticoagulation Telephone Call [address] [address] Jignesh Gallo MD jail (current) use of anticoagulants [Z79.01] (Primary Dx); S/P aortic valve replacement with metallic valve 08/15/2024 4:15 PM TAX AGENT Office Visit [facility] Care at [address] [address] Marie Dumont, SANDEE Acute pain of left shoulder (Primary Dx) 08/15/2024 10:15 AM TAX AGENT Ancillary Procedure [facility] Cardiology [address] [place] [address] Status post placement of implantable loop recorder (Primary Dx); Syncope and collapse 08/14/2024 Telephone [facility] Rheumatology at [facility] [address] [place] [address] Scarlett Navarro MD Pain on her shoulder 08/09/2024 Anticoagulation Telephone Call [facility] Cardiology [address] [place] [address] [address] [place] [address] Jignesh Gallo MD jail (current) use of anticoagulants [Z79.01] (Primary Dx); S/P aortic valve replacement with metallic valve 07/24/2024 Anticoagulation Telephone Call [facility] Cardiology [facility] [place] [address] Jignesh Gallo MD jail (current) use of anticoagulants [Z79.01] (Primary Dx); S/P aortic valve replacement with metallic valve from Last 3 Months Immunizations Name Administration Dates Next Due Influenza, Quad, Adjuvantate d, Intramuscular 06/25/2022 Influenza, Quadrivalent, Spl it, Preservative Free, Intramuscular 06/30/2021,05/21/2020,07/05/2019 Influenza, Trivalent, IM (MDV) 06/20/2017,2012 Influenza, Trivalent, Preser vative Free, Intramuscular 06/08/2013 Influenza, Unspecified 06/29/2021 Pfizer SARS-CoV-2 Monovalent Vaccination (12+ Yrs) PURPLE 08/09/2021 Pfizer Sars-Cov-2 Bivalent V accination (12+ YRS) 06/25/2022 ZOSTER Recombinant 06/30/2021 Surgical History Surgery Date Site/Laterality Comments CARDIAC VALVE REPLACEMENT 09/06/2004 - 09/05/2005 Aortic valve replacement CHOLECYSTECTOMY 07/07/2019 - 08/05/2019 BUNIONECTOMY 09/06/2007 - 09/05/2008 Left COLONOSCOPY CYST REMOVAL vaginal OTHER SURGICAL HISTORY 09/06/2021 - 09/05/2022 loop recorder-- CARPAL TUNNEL RELEASE 11/17/2022 Right RT. CTR HAND SURGERY Right CTR Medical History Medical History Date Comments Seizure disorder (CMS/HCC) (HCC) Seizure Disorder-pt has fainting episodes-poss vaso-vagal? Last 07/27 Heart valve disease Cardiac valv ular disease Hyperlipidemia Hyperlipidemia Osteoporosis 05/2021 Heart murmur Obesity Stroke (HCC) Urinary tract infection Family History Medical History Relation Name Comments Cancer Father Art Prostate cancer Father Art Cancer Maternal Grandfather Aditya Oakley Cancer Mother Manisha Diabetes Mother Manisha Hypertension Mother Manisha Kidney disease Mother Manisha Uterine cancer Mother Manisha Allergy (severe) Sister Xin Asthma Sister Xin Cancer Sister Xin Hodgkin's lymphoma Sister Xin Relation Name Status Comments Father Art Alive Maternal Grandfather Aditya Oakley Mother Manisha Alive Sister Xin Alive Social History Tobacco Use Types Packs/Day Years [...] on file Legal Sex Female 11:46 AM TAX AGENT Gender Identity Female 06/05/2021 4:05 PM CDT Sexual Orientation Straight 06/05/2021 4: 05 PM CDT Obstetrics History Last Filed Vital Signs Vital Sign Reading Time Taken Comments Blood Pressure 126/82 08/15/2024 3:27 PM TAX AGENT Pulse 71 08/15/2024 3:27 PM TAX AGENT Temperature 37 C (98.6 F) 08/15/2024 3:27 PM TAX AGENT Respiratory Rate 20 08/15/2024 3:27 PM TAX AGENT Oxygen Saturation 99% 08/15/2024 3:27 PM TAX AGENT Inhaled Oxygen Concentration - - Weight 95.3 kg (210 lb) 08/15/2024 3:27 PM TAX AGENT Height 167.6 cm (5' 6 ) 06/02/2024 10:42 AM CDT Body Mass Index 33.89 06/02/2024 10:42 AM CDT Plan of Treatment Health Maintenance Due Date Last Done Comments Cervical Cancer Screening 1961 Colon Cancer Screening-Colonoscopy 1961 Depression Screening 1961 DTaP/Tdap/Td Vaccine (1 - Tdap) 1972 Hepatitis B Screening 1979 Regular Well Visit/Exam 18-64 1979 Breast Cancer Screening-Mammogram 08/16/2019 08/16/2018, 07/15/2017, 07/15/2017, Additional history exists Zoster Vaccine (2 of 2) 08/25/2021 06/30/2021 Covid-19 Vaccine ( season) 2024 06/25/2022, 08/09/2021, 11/27/2020, Additional history exists Influenza Vaccine (#1) 2024 , 06/30/2021, 06/29/2021, Additional history exists Hepatitis C Screening Completed 10/18/2020 Pneumococcal vaccine <65 Aged Out No longer eligible based on patient's age to complete this topic Medical Devices Implanted Type Area Director Of Cardiac Rehabilitation Device Identifier Shelf Expiration Date Model / Serial / Lot Medtronic Cardiac Rhythm Mgmt Linqsys Reveal Linq Mycarelink Insertable Loop Recorder Automatic - [id number] - [id number] Implanted:Qty: 1 on 08/15/2021 by Jignesh Gallo MD at [facility] Implantable Loop Recorder [employer] 04/19/2022 LINQSYS / [id number] / Procedures Procedure Name Priority Date/Time Associated Diagnosis Comments PROTIME-INR Routine 10/06/2024 DEVICE CHECK - REMOTE Routine 09/26/2024 9:32 AM TAX AGENT Syncope and collapse PROTIME-INR Routine 09/15/2024 PROTIME-INR Routine 08/29/2024 DEVICE CHECK - REMOTE Routine 08/15/2024 8:42 AM TAX AGENT Syncope and collapse PROTIME-INR Routine 08/09/2024 PROTIME-INR Routine 07/24/2024 HEPATITIS C ANTIBODY Routine 10/18/2020 2:10 PM TAX AGENT Arthralgia, unspecified joint Elevated sed rate Acute pain of both shoulders Myalgia from Last 3 Months or Most Recently Relevant to Health Maintenance Results * (ABNORMAL) Protime-INR (10/06/2024) INR 2.80(A) 2.50 - 3.50 EXTERNAL LAB Blood Historical Provider LAB BLOOD ORDERABLES Yomaira l Result Performing Organization Address [facility]/ZIP Co de Phone Number EXTERNAL LAB * DEVICE CHECK - REMOTE (09/26/2024 9:32 AM TAX AGENT) Anatomical Region Laterality Modality Other Narrative 10/02/2024 7:31 AM TAX AGENT Medtronic REVEAL LinQ implanted August 15, 2021 [...] Continue to monitor remotely. Waldemar Cruz Device Extended Insurance Clerk Jignesh Gallo MD [facility] PROC EDURES Final Result * (ABNORMAL) Protime-INR (09/15/2024) INR 3.10(A) 2.50 - 3.50 EXTERNAL LAB Blood Historical Provider LAB BLOOD ORDERABLES Yomaira l Result EXTERNAL LAB * (ABNORMAL) Protime-INR (08/29/2024) INR 2.40(A) 2.50 - 3.50 EXTERNAL LAB Blood Result [facility] Provider MD LAB BLOOD ORDERABLES Yomaira l Result EXTERNAL LAB * DEVICE CHECK - REMOTE (08/15/2024 8:42 AM TAX AGENT) Anatomical Region Laterality Modality Other Narrative 08/19/2024 1:34 PM TAX AGENT [place] [employer] REVEAL LinQ implanted August 15, 2021 for [...] events. 2) Continue to monitor remotely. Waldemar rCuz Device Extended Insurance Clerk Result [facility] Jignesh Gallo MD CV CARDIAC SERVICES PROC EDURES Final Result * (ABNORMAL) Protime-INR (08/09/2024) INR 4.40(A) 2.50 - 3.50 EXTERNAL LAB Blood Result [facility] Provider MD LAB BLOOD ORDERABLES Yomaira l Result EXTERNAL LAB * (ABNORMAL) Protime-INR (07/24/2024) INR 2.80(A) 2.50 - 3.50 EXTERNAL LAB Blood Result [facility] Provider MD LAB BLOOD ORDERABLES Yomaira l Result EXTERNAL LAB * Hepatitis C antibody (10/18/2020 2:10 PM TAX AGENT) Hep C Ab NON-REACTI VE NON-REACT DAMEON [facility] SIGNAL TO CUT-OFF 0.06 <1.00 [facility] Comment: HCV antibody was non-reactive. There is no laboratory evidence of HCV infection. In most cases, no further action is required. However, if recent HCV exposure is suspected, a test for HCV RNA (test code 27227) is suggested. For additional information please refer to http://education.Yikuaiqu/faq/LSY54q1 (This link is being provided for informational/ educational purposes only.) Blood specimen (specimen) 10/18/2020 2:10 PM TAX AGENT 10/18/2020 2:16 PM TAX AGENT Narrative [facility] - 10/21/2020 1:43 PM TAX AGENT FASTING:NO FASTING: NO Scarlett Navarro MD LAB MICROBIOLOGY - GENERAL ORDERABLES Final Result [facility] [address] [place] [address] from Last 3 Months or Most Recently Relevant to Health Maintenance Insurance [facility] HMO/POS Member Subscriber Plan / Payer (Ef fective 2016-Present) Name:Francisca Marsh Girish Relation to Subscriber:Self Name:Francisca Marsh Girish Payer ID:[id number] (NAIC) Type:AETNA HMO/PPO Address: [place] [phone] [employer]ETNA COV[employer]ative Mind[employer] HMO/POS Member Subscriber Plan / Payer (Ef fective 2016-Present) Name:Francisca Marsh Girish Relation to Subscriber:Self Name:Francisca Marsh Girish Payer ID:[id number] (NAIC) Type:AETNA HMO/PPO Address: [place] [id number] Advance Directives For more information, please contact: [phone] * Full Code (Latest Code Status on File) Date Activated Date Inactivated Comments 07/13/2021 5:48 AM 07/14/2021 7:38 PM Care Teams Information Assurance Specialist Relationship Specialty Start Date End Date Julito Mcgee MD [facility] [place] [address] PCP - General Family Medicine 05/01/24 Jignesh Gallo MD [address] [place] [address] Cardiology Nurse Practitioner Cardiology 11/25/20
--- OUTSIDE RECORDS SUMMARY | 2024-10-17 13:06 | XMS_ITS | Continuity of Care Document ---
Author Organization [facility] Address [address] [address] Phone Care Team Providers Care Airbrush Painter Name Role Phone Mateusz Pepper MD Unavailable Unavailable Procedures Procedure Date Office/outpatient visit,[facility] 2008 X-ray exam of hand, 3+ views Office/outpatient visit,[facility] [place]-ray exam of hand, 3+ views Advance Directives Directive Yes / No Effective Date File Name No Information Encounters Encounter Description Practice Location Reason(s) For Visit Diagnoses Date Provider Providers Copied on Encounter Office/outpat ient visit,[facility] [employer] [facility], [address], [id number], [phone] [facility] No Information [address], [id number] , [place]. tel: [phone] Office/outpat ient visit,[facility] [employer] [facility], [address] [place] [address], [id number], [phone] [employer] No Information [address]. [address] [place] [address], [id number] , [place]. tel: [phone] Family History Family Member Type Diagnosis Age At Onset No Information Payers Payer name Insurance type Covered green party ID Authoriza tion(s) No Information Social History Type Description Quantity Date Captured Comments Sex Female Smoking Status No Information Chief Complaint And Reason For Visit No Information Reason For Referral Reason For Referral No Information History Of Present Illness Encounter Date Complaint History Of Prese nt Illness No Information Functional Status Date Functional Assessmen t No Information Instructions Date Instruction Additional Infor mation No Information Assessments Type Assessment Date No Information Patient Care Teams Name Effective Dates (start - stop) Status Members No Information
== END 2024-10-17 11:53 | disposition home or self-care (01) ==
LOC: CHSIMG 11:55
PROVIDERS: PCP Family Medicine; Visit Provider Family Medicine
DX: Z78.0 Asymptomatic menopausal state (principal); M85.89 Other specified disorders of bone density and structure, multiple sites
CPT/HCPCS: 77080

== ENCOUNTER 2025-01-12 11:25 | Outpatient (CLI) | payer OTHER, SELFPAY ==
--- NOTE | ~2025-01-12 | MM_ITS ---
EXAMINATION: MM screening kit BI w ketty HISTORY: Screening TECHNIQUE: Craniocaudal and mediolateral oblique 3-D tomosynthesis images were obtained and synthetic 2-D images were generated. CAD analysis was submitted and interpreted. COMPARISON: Comparison to multiple prior studies sequentially, with oldest reviewed study dated 06/07. BREAST PARENCHYMAL COMPOSITION: Not dense: There are scattered areas of fibroglandular density. FINDINGS: There are developing asymmetries in the upper outer quadrant of the right breast, middle th ird. There are no suspicious masses, calcifications or architectural distortion in the left breast to suggest malignancy. IMPRESSION: 1. Developing right breast asymmetries, upper outer quadrant, middle third. 2. Additional mammographic views and possible breast ultrasound are recommended. BI-RADS Category 0: Incomplete: Needs additional imaging evaluation. Reviewed, dictated and finalized at location A. IMPRESSION: 1. Developing right breast asymmetries, upper outer quadrant, middle third. 2. Additional mammographic views and possible breast ultrasound are recommended . BI-RADS Category 0: Incomplete: Needs additional imaging evaluation.
== END 2025-01-12 11:26 | disposition home or self-care (01) ==
LOC: MICIMG 11:28
PROVIDERS: PCP Family Medicine; Visit Provider Family Medicine
DX: Z12.31 Encounter for screening mammogram for malignant neoplasm of breast (principal); R92.8 Other abnormal and inconclusive findings on diagnostic imaging of breast
CPT/HCPCS: 77063; 77067

== ENCOUNTER 2025-02-05 09:25 | Outpatient (CLI) | payer OTHER, SELFPAY ==
--- NOTE | ~2025-02-05 | MMUS_ITS ---
EXAMINATION: US breast RT limited, MM diagnostic kit RT w ketty HISTORY: Follow-up right breast asymmetry TECHNIQUE: Additional 3-D tomosynthesis images of the right breast were performed and synthetic 2-D i mages were generated. CAD analysis was submitted and interpreted. High resolution Limited right breas t ultrasound was performed. COMPARISON: Comparison to multiple prior studies sequentially, with oldest reviewed study dated 06/07. BREAST PARENCHYMAL COMPOSITION: Not dense: There are scattered areas of fibroglandular density. FINDINGS: MAMMOGRAPHIC FINDINGS: There are asymmetries in the upper outer quadrant of the right breast, middle third which are less de nse with spot compression views, compatible with superimposed fibroglandular tissue. ULTRASOUND: Limited right breast ultrasound: At 12:00, 10 cm from the nipple there is an oval hypoechoic mass allyson brennen variants of normal tissue, measuring 4 mm. No internal vascularity or posterior features. No othe r masses or fluid collections. IMPRESSION: 1. Probable benign oval 4 mm hypoechoic mass of the right breast at 12:00, 10 cm from the nipple. 2. Recommend 6 month follow-up Limited right breast ultrasound BI-RADS category 3, probably benign findings. Reviewed, dictated and finalized at location A. IMPRESSION: 1. Probable benign oval 4 mm hypoechoic mass of the right breast at 12:00, 10 c m from the nipple. 2. Recommend 6 month follow-up Limited right breast ultrasound BI-RADS category 3, probably benign findings.
== END 2025-02-05 09:26 | disposition home or self-care (01) ==
LOC: MICIMG 09:26
PROVIDERS: PCP Family Medicine; Visit Provider Nurse Practitioner
DX: R92.8 Other abnormal and inconclusive findings on diagnostic imaging of breast (principal)
CPT/HCPCS: 76642; 77061; 77065; G0279

== ENCOUNTER 2025-08-06 08:48 | Outpatient (CLI) | payer OTHER, SELFPAY ==
--- NOTE | ~2025-08-06 | US_ITS ---
EXAM/PROCEDURE: US breast RT limited HISTORY: Follow-up COMPARISON: February 05 TECHNIQUE: Grayscale and color Doppler FINDINGS: Sonography to 12:00 position demonstrates the presence of a circumscribed, ovoid, hypoechoic mass with a maximum dimension of 5 mm. There appear to be some echogenic striations. The appearance is unchanged. IMPRESSION: No significant interval change in the probably benign small mass at 12:00. This should be reassessed at the time of the bilateral mammogram in Jan, 2026. BI-RADS 3-probably benign findings. Short-term follow-up is recommended. Reviewed, dictated and finalized at location C. [facility] OPERATOR
== END 2025-08-06 08:49 | disposition home or self-care (01) ==
LOC: MICIMG 08:49
PROVIDERS: PCP Family Medicine; Visit Provider Nurse Practitioner
DX: R92.8 Other abnormal and inconclusive findings on diagnostic imaging of breast (principal)
CPT/HCPCS: 76642